=== PATIENT | female | born 1990 | race Caucasian/White ===

== ENCOUNTER 2024-10-14 19:49 | Inpatient (IN) | payer BC, SELFPAY ==
[2024-10-14 20:06] VITALS: BP 122/85; BMI 31.5
[2024-10-14 20:25] LABS: Hematocrit 34.8 % (37.0-47.0); Hemoglobin 12.4 g/dL (12.0-16.0); Mean Corp Hgb Conc. 35.6 g/dL (33.0-37.0); Mean Corpuscular Volume 93.3 fL (81.0-99.0); Nucleated Red Blood Cells % 0 %; Platelet Count 189 10^3/uL (130-400); Red Cell Dist. Width 12.2 % (11.5-14.5)
[2024-10-14] MEDS: CYTOTEC 25 MICROGRAM VAG (21:33)
[2024-10-14] MEDS: CYTOTEC PO (22:21)
[2024-10-15] MEDS: CYTOTEC 25 MICROGRAM PO ×2 (01:42→05:32)
[2024-10-15] MEDS: CYTOTEC PO ×4 (09:30→21:00)
[2024-10-15] MEDS: LR 1000 IV ×4 (10:55→21:15)
[2024-10-15] MEDS: PITOCIN 30 UNITS/NSS 500 ML IV ×2 (10:56→21:56)
[2024-10-15] MEDS: FENTANYL/BUPIVACAINE 100 EPIDURAL (15:54)
[2024-10-15] MEDS: SUBLIMAZE 100 MCG EPIDURAL (15:54)
[2024-10-15] MEDS: TUMS CHEWABLE TABLET 400 MG PO (18:13)
[2024-10-15] MEDS: PEPCID 20 MG IV (21:13)
[2024-10-15] MEDS: NSS (PRESERVATIVE FREE) 8 ML IV (21:13)
[2024-10-15] MEDS: ZOFRAN 4 MG IV (22:25)
[2024-10-16] MEDS: TYLENOL 650 MG PO ×4 (01:06→21:09)
[2024-10-16] MEDS: MOTRIN 600 MG PO ×4 (01:07→21:09)
[2024-10-16 05:49] LABS: Hematocrit 33.7 % (37.0-47.0); Hemoglobin 11.9 g/dL (12.0-16.0)
[2024-10-16] MEDS: COLACE 100 MG PO ×2 (08:26→21:28)
[2024-10-16] MEDS: ZOLOFT 25 MG PO (12:46)
[2024-10-16 15:21] LABS: Syphilis/T. pallidum Ab Reflex Negative (Negative)
[2024-10-16] MEDS: PRENATAL PLUS 1 TABLET PO (21:09)
[2024-10-17] MEDS: MOTRIN 600 MG PO (05:15)
[2024-10-17] MEDS: TYLENOL 650 MG PO (05:15)
[2024-10-17] MEDS: ZOLOFT 25 MG PO (09:14)
[2024-10-17] MEDS: COLACE 100 MG PO (09:14)
[2024-10-17] MEDS: PRENATAL PLUS 1 TABLET PO (09:14)
== END 2024-10-17 15:02 | disposition home or self-care (01) | DRG 807 ==
LOC: LDRP 19:49
PROVIDERS: Student in an Organized Health Care Education/Training Program; ADMITTING PHYSICIAN Obstetrics & Gynecology
PROC: 10907ZC Drainage of Amniotic Fluid, Therapeutic from Products of Conception, Via Natural or Artificial Opening (ICD-10-PCS; 2024-10-15)
PROC: 3E0P7VZ Introduction of Hormone into Female Reproductive, Via Natural or Artificial Opening (ICD-10-PCS; 2024-10-15)
PROC: 10E0XZZ Delivery of Products of Conception, External Approach (ICD-10-PCS; 2024-10-15)
PROC: 0KQM0ZZ Repair Perineum Muscle, Open Approach (ICD-10-PCS; 2024-10-15)
PROC: 3E033VJ Introduction of Other Hormone into Peripheral Vein, Percutaneous Approach (ICD-10-PCS; 2024-10-15)
DX: O48.0 Post-term pregnancy (principal); Z37.0 Single live birth; Z3A.40 40 weeks gestation of pregnancy; O70.1 Second degree perineal laceration during delivery; O76 Abnormality in fetal heart rate and rhythm complicating labor and delivery; O69.81X0 Labor and delivery complicated by cord around neck, without compression, not applicable or unspecified; Z88.0 Allergy status to penicillin; Z80.3 Family history of malignant neoplasm of breast; Z80.7 Family history of other malignant neoplasms of lymphoid, hematopoietic and related tissues; Z80.0 Family history of malignant neoplasm of digestive organs
CPT/HCPCS: 85014; 85018; 85025; 86780; 86850; 86900; 86901